=== PATIENT | male | born 1980 | race Caucasian/White ===

== ENCOUNTER 2018-10-16 16:41 | Emergency (ER) | payer MEDICARE, BC, SELFPAY ==
[2018-10-16 16:44] VITALS: BP 168/105; PULSE 102; RESP 16; TEMP 36.3; O2SAT 99
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
--- NOTE | 2018-10-16 16:59 | DI.RAD_ITS ---
SYMPTOM/DIAGNOSIS: COUGH PA AND LATERAL CHEST: There are no prior comparison exams. The cardiac and mediastinal contours have a normal appearance. The lungs are well inflated and clear. No infiltrate, effusion or pneumothorax is seen. No bony abnormalities are identified. IMPRESSION: Negative chest x-ray
--- NOTE | 2018-10-16 17:19 | DI.VRAD_ITS ---
EXAM: XR Chest, 2 Views EXAM DATE/TIME: 10/16/2018 4:59 PM CLINICAL HISTORY: 38 years old, male; Signs and symptoms; Cough TECHNIQUE: Imaging protocol: XR of the chest, 2 views. COMPARISON: No relevant prior studies available. FINDINGS: Lungs: Unremarkable. No consolidation. Pleural space: The posterior costophrenic angles are incompletely visualized on the lateral film. Heart/Mediastinum: Unremarkable. No cardiomegaly. Bones/joints: Unremarkable. IMPRESSION: No acute cardiopulmonary disease. Posterior costophrenic angles incompletely visualized on the lateral film. Dictated and Authenticated by: Jacy Baptiste MD. Ordering:LATONYA Gomez MD
[2018-10-16 17:34] VITALS: BP 168/105; PULSE 98; RESP 16; O2SAT 99
== END 2018-10-16 17:37 | disposition home or self-care (01) ==
PROVIDERS: Emergency Provider Emergency Medicine
DX: J44.9 Chronic obstructive pulmonary disease, unspecified (principal); F17.210 Nicotine dependence, cigarettes, uncomplicated; Z53.29 Procedure and treatment not carried out because of patient's decision for other reasons
CPT/HCPCS: 99283; 71046

== ENCOUNTER 2019-03-20 14:36 | Outpatient (REF) | payer MEDICARE, BC, SELFPAY ==
[2019-03-20 22:09] LABS: Abs Immature Grans 0.01 k/cumm (0.0-0.09); Absolute Basophil Count 0.07 k/cumm (0.0-0.2); Absolute Eosinophil Count 0.13 k/cumm (0.0-0.7); Absolute Monocyte Count 0.53 k/cumm (0.11-0.7); Absolute Neutrophil Count 3.54 k/cumm (1.2-6.7); Basophils % 1.1; Immature Grans % 0.2; Mean Corp. HGB Concentration 35.6 g/dL (32.0-36.0); Mean Corpuscular Hemoglobin 32.3 pg (27.0-33.0); Mean Corpuscular Volume 90.9 fL (80-95); Mean Platelet Volume 10.6 fL (8.0-11.0); Monocytes % 8.2; Neutrophils % 54.5; Platelet Count 263 x1000/uL (130-400); RBC 4.95 m/cumm (4.50-6.00); RBC Distribution Width 12.8 % (11.8-14.1); White Blood Cell Count 6.48 k/cumm (4.4-10.8)
[2019-03-20 22:23] LABS: ALT 29 U/L (16-63); AST 22 U/L (15-37); Albumin 3.9 g/dL (3.4-5.0); Alkaline Phosphatase 84 U/L (46-116); Anion Gap 9.7 mmol/L (3-11); BUN 8 mg/dL (7-18); Bilirubin, Total 0.3 mg/dL (0.2-1.0); CO2 27.3 mmol/L (21.0-32.0); CREATININE 0.98 mg/dL (0.70-1.30); Calcium 8.9 mg/dL (8.5-10.1); Chloride 102 mmol/L (98-107); Glucose 171 mg/dL (74-106); Potassium 3.9 mmol/L (3.5-5.1); Sodium 139 mmol/L (136-145); TSH (W/Ref FT4) 0.86 uIU/mL (0.36-3.74); Total Protein 7.2 g/dL (6.4-8.2)
[2019-03-22 11:41] LABS: Alpha 1 Antitrypsin,Serum 152 mg/dL (90-200)
== END 2019-03-20 14:56 ==
LOC: NCHCN 14:36
PROVIDERS: PCP Specialist/Technologist Athletic Trainer; Visit Provider Specialist/Technologist Athletic Trainer
DX: E03.9 Hypothyroidism, unspecified (principal); K92.2 Gastrointestinal hemorrhage, unspecified; J44.9 Chronic obstructive pulmonary disease, unspecified
CPT/HCPCS: 80053; 82103; 84443; 85025

== ENCOUNTER 2019-03-27 15:36 | Outpatient (REF) | payer MEDICARE, BC, SELFPAY ==
[2019-03-27 21:14] LABS: Hemoglobin A1C 5.1 % (4.5-6.2)
== END 2019-03-27 15:56 ==
LOC: NCHCN 15:36
PROVIDERS: PCP Specialist/Technologist Athletic Trainer; Visit Provider Specialist/Technologist Athletic Trainer
DX: R73.9 Hyperglycemia, unspecified (principal)
CPT/HCPCS: 83036

== ENCOUNTER 2019-04-10 02:02 | Outpatient (CLI) | payer MEDICARE, BC, SELFPAY ==
--- NOTE | 2019-04-10 08:00 | PFT_ITS ---
DATE: APRIL 10, 2019 REQUESTING PROVIDER: LOLA Schreiber INTERPRETATION SPIROMETRY: Spirometry shows mild obstructive airways disease with significant bronchodilator response. LUNG VOLUMES: Lung volumes show no evidence of restriction. There is mild hyperinflation and air trapping. DIFFUSION CAPACITY: Normal. AIRWAY RESISTANCE: Normal. IMPRESSION: Mild obstructive airways disease with significant bronchodilator response. This is associated with mild hyperinflation and air trapping. Clinical correlation recommended.
[2019-04-10] MEDS: Inhaler, Assist Device 1 EACH MC (14:33)
[2019-04-10] MEDS: Albuterol HFA 18 GM 200 PUFF INH IH (14:34)
== END 2019-04-10 02:22 ==
PROVIDERS: PCP Specialist/Technologist Athletic Trainer; Visit Provider Specialist/Technologist Athletic Trainer
DX: J44.9 Chronic obstructive pulmonary disease, unspecified (principal); R06.09 Other forms of dyspnea; R05 Cough; F17.210 Nicotine dependence, cigarettes, uncomplicated; Z57.39 Occupational exposure to other air contaminants
CPT/HCPCS: 94060; 94150; 94726; 94729

== ENCOUNTER → 2019-06-20 12:35 | Outpatient (BNVA) | payer MEDICARE, BC, SELFPAY | PROVIDERS: PCP Specialist/Technologist Athletic Trainer; Referring Provider Specialist/Technologist Athletic Trainer; Visit Provider Surgery | DX: K62.5 Hemorrhage of anus and rectum (principal); R63.6 Underweight; J44.9 Chronic obstructive pulmonary disease, unspecified; F17.210 Nicotine dependence, cigarettes, uncomplicated; Z77.098 Contact with and (suspected) exposure to other hazardous, chiefly nonmedicinal, chemicals; Y36.90XS War operations, unspecified, sequela; F43.10 Post-traumatic stress disorder, unspecified; Z13.88 Encounter for screening for disorder due to exposure to contaminants; M25.50 Pain in unspecified joint; G89.29 Other chronic pain; K60.1 Chronic anal fissure | CPT/HCPCS: 46600; 99204; 99215 ==

== ENCOUNTER 2019-07-10 01:02 | Outpatient (CLI) | payer MEDICARE, BC, SELFPAY ==
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
== END 2019-07-10 01:22 ==
PROVIDERS: PCP Specialist/Technologist Athletic Trainer; Visit Provider Internal Medicine
DX: J44.9 Chronic obstructive pulmonary disease, unspecified (principal)
CPT/HCPCS: 71250

== ENCOUNTER 2021-04-27 11:59 | Outpatient (REF) | payer MEDICARE, BC, SELFPAY ==
[2021-04-27 15:47] LABS: Iron 147 ug/dL (65-175); Total Iron Binding Capacity 237 ug/dL (250-450); Transferrin Sat 62 % (20-55)
[2021-04-27 15:55] LABS: ALT 20 U/L (16-63); AST 24 U/L (15-37); Alkaline Phosphatase 70 U/L (46-116); Anion Gap 8.9 mmol/L (3-11); BUN 9 mg/dL (7-18); Bilirubin, Total 0.4 mg/dL (0.2-1.0); CO2 27.1 mmol/L (21.0-32.0); CREATININE 0.7 mg/dL (0.70-1.30); Calcium 9.1 mg/dL (8.5-10.1); Chloride 103 mmol/L (98-107); Ferritin 140 ng/mL (26-388); Folate 17.7 ng/mL (8.6-20.0); Glucose 84 mg/dL (74-106); Potassium 4.8 mmol/L (3.5-5.1); Sodium 139 mmol/L (136-145); TSH (W/Ref FT4) 1.24 uIU/mL (0.36-3.74); Total Protein 7.4 g/dL (6.4-8.2); Vitamin B12 514 pg/mL (193-986)
== END 2021-04-27 12:00 | disposition home or self-care (01) ==
LOC: NCHCN 11:59
PROVIDERS: PCP Specialist/Technologist Athletic Trainer; Visit Provider Nurse Practitioner Family
DX: K30 Functional dyspepsia (principal); E03.9 Hypothyroidism, unspecified; R03.0 Elevated blood-pressure reading, without diagnosis of hypertension; M54.9 Dorsalgia, unspecified; R41.3 Other amnesia
CPT/HCPCS: 80053; 82607; 82728; 82746; 83540; 83550; 84443

== ENCOUNTER 2021-05-17 11:32 | Emergency (ER) | payer MEDICARE, BC, SELFPAY ==
[2021-05-17 11:42] VITALS: BP 172/100; PULSE 94; RESP 14; TEMP 37.2; O2SAT 98
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
== END 2021-05-17 13:02 | disposition home or self-care (01) ==
PROVIDERS: Emergency Provider Physician Assistant; PCP Specialist/Technologist Athletic Trainer
DX: T20.212A Burn of second degree of left ear [any part, except ear drum], initial encounter (principal); X02.8XXA Other exposure to controlled fire in building or structure, initial encounter
CPT/HCPCS: 99282; 99283

== ENCOUNTER 2021-09-03 14:18 | Emergency (ER) | payer MEDICARE, BC, SELFPAY ==
[2021-09-03 14:44] VITALS: BP 142/91; PULSE 102; RESP 16; TEMP 36.5; O2SAT 96
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
--- NOTE | 2021-09-03 15:30 | DI.RAD_ITS ---
Exam(s) XR CHEST 2V PA LATERAL EXAM: XR CHEST 2V PA LATERAL CLINICAL HISTORY: fall pain rt sided TECHNIQUE: 2D digital imaging was performed. COMPARISON: CR XR CHEST 2V PA LATERAL from 10/16/2018 FINDINGS: The heart is not enlarged. The lungs are clear and well expanded. No pleural effusion seen. Mediastin al contours appear intact. IMPRESSION: Normal chest. RADIATION DOSE DELIVERED: Total DLP
== END 2021-09-03 16:15 | disposition home or self-care (01) ==
PROVIDERS: Emergency Provider Emergency Medicine; PCP Nurse Practitioner Family
DX: S20.211A Contusion of right front wall of thorax, initial encounter (principal); W01.190A Fall on same level from slipping, tripping and stumbling with subsequent striking against furniture, initial encounter
CPT/HCPCS: 99283; 71046

== ENCOUNTER 2023-05-13 09:34 | Emergency (ER) | payer MEDICARE, BC, SELFPAY ==
[2023-05-13 09:40] VITALS: BP 166/90; PULSE 112; RESP 18; TEMP 37.4; O2SAT 95
--- NOTE | 2023-05-13 10:00 | DI.RAD_ITS ---
Exam(s) XR HAND LT COMPLETE EXAM: XR HAND LT COMPLETE CLINICAL HISTORY: fall/pain/5th digit. TECHNIQUE: 2D digital imaging was performed of the left hand. Three views were obtained. AP, later al and oblique views were obtained. COMPARISON: No exams were available for comparison FINDINGS: BONES: There is an acute nondisplaced fracture through the midshaft of the 5th metacarpal bone. No b janis destructive lesion is seen. JOINTS: No dislocation present. SOFT TISSUE: Normal. IMPRESSION: Acute nondisplaced 5th metacarpal fracture. DATA REPOSITORY: RADIATION DOSE DELIVERED:
--- NOTE | 2023-05-13 10:00 | ED.GENADUL_ITS ---
HPI General Stated Complaint: Orthopedic Mode of arrival: ambulatory. HEBERT: 4 Date/Time Provider Initiated Documentation: 05/13/23 10:00. Limitations to Documentation: no limitations. Information obtained by: patient. History of Present Illness L hand injury moderate 5 aching left and upper extremity reports no radiation day(s) (2) constant Immobilization improves symptom(s), Movement worsens symptoms no other symptoms. none Related Data Home Medications Medication Instructions Recorded Confirmed Unknown [No Known Home Meds] 05/17/21 05/13/23 Allergies Allergy/AdvReac Type Severity Reaction Status Date / Time bupropion Allergy Severe Verified 05/13/23 09:45 lorazepam [From Ativan] Allergy Severe Verified 05/13/23 09:45 Benzodiazepines AdvReac Mild ? MH Unverified 05/13/23 09:45 reaction Review of Systems Constitutional Constitutional: Denies weakness Musculoskeletal Musculoskeletal: Denies deformity, Denies numbness, Reports stiffness and Denies tingling Integumentary/Breasts Skin/Breast: Denies rash Neurologic Neurologic: Denies numbness, Denies tingling and Denies weakness PFSH All Active Problems (Updated 05/13/23 @ 11:15 by LOLA Weiss) Fracture of fifth metacarpal bone of left hand (Acute) Chronic rectal fissure (Acute) Chronic joint pain (Acute) Myalgia and myositis, unspecified (Acute) [place] syndrome (Acute) Exposure to hazardous chemical (Acute) Hypothyroidism (Chronic) GI bleed (Chronic) Low weight (Acute) Abdominal pain (Acute) PTSD (post-traumatic stress disorder) (Acute) Diarrhea (Acute) Asthma (Chronic) Alcohol abuse (Chronic) COPD (chronic obstructive pulmonary disease) (Chronic) Medical History Lymphadenopathy Murmur Multiple nodules of lung Depression FRANCO (obstructive sleep apnea) URI (upper respiratory infection) (~05/2019) Bright red blood per rectum Auditory hallucinations Marijuana use Schizoaffective disorder Social History Smoking/Tobacco Use Status: Current every day Tobacco Type: cigarettes Smoking risk assessment performed?: Yes Alcohol Intake: current Alcohol Intake frequency: 0-2 drinks per day Alcohol type: beer Drug use: Occasionally Substance use type: marijuana Do you feel safe at home: Yes Do you feel safe in your relationship?: Yes Additional Social history: family members stalking him for ex- CATARINA Have you Been Recently Intoxicated or Drunk Within the Last 30 days?: Yes Have you Ever Experienced Previous Episodes of Alcohol Withdrawal?: Yes Have you ever Experienced Withdrawal Seizures?: No Have you ever Experienced Delirium Tremens(DT)s?: Yes Have you ever undergone Alcohol Rehabilitation Treatment (i.e, inpt ot outpatient treatment programs)?: Yes Have you ever Experienced Blackouts?: Yes Have you ever Combined Alcohol with other Downers within the last 90 days?: No Have you ever Combined Alcohol with any other Substance of Abuse during the last 90 days?: No Positive Blood Alcohol level on Presentation? [PCS.BAL]: No Evidence of Increased Autonomic Activity (i.e. HR>120, tremor, sweating, agitation, nausea)?: No Result: 5 Exam Const General: cooperative, healthy appearing and comfortable Orientation: alert and awake HENAK Head: normal to inspection, normocephalic and atraumatic Eyes Conjunctivae: conjunctivae normal Neck Neck: normal visual inspection, trachea midline and supple Resp Effort & Inspection: normal respiratory effort and able to speak in complete sentences Cardio Rate: regular rate (90s) Rhythm: regular rhythm Skin Other: intact Neuro General: patient alert, patient awake, moves all extremities and no focal motor deficits Sensory Exam: no sensory deficits noted Extrem General: capillary refill normal Other: Left hand exam: Visual inspection without erythema, ecchymosis, obvious deformity. There is mild swelling about the fifth metacarpal as well as point tenderness. Patient is able to demonstrate full extension of all digits, able to fully flex his thumb index, middle, ring finger, only able to half flex his pinky finger but there is no obvious malrotation. Wrist is nontender and demonstrates full range of motion. Normal radial pulse and capillary refill Psych Appearance: grossly normal Mental Status: mental status grossly normal Course Vital Signs Vital signs: Vital Signs Temperature 37.4 C 05/13/23 09:40 Pulse 112 H 05/13/23 09:40 Respiratory Rate 18 05/13/23 09:40 Blood Pressure 166/90 H 05/13/23 09:40 Pulse Oximetry 95 05/13/23 09:40 Temperature 37.4 C 05/13/23 09:40 Temperature Source Temporal Artery Scan 05/13/23 09:40 Pulse 112 H 05/13/23 09:40 Respiratory Rate 18 05/13/23 09:40 Respiratory Effort Normal, Non-Labored 05/13/23 09:46 Blood Pressure 166/90 H 05/13/23 09:40 Blood Pressure Position Sitting 05/13/23 09:40 Pulse Oximetry 95 05/13/23 09:40 Oxygen Delivery Method Room Air 05/13/23 09:40 Oxygen Flow Rate 0 05/13/23 09:40 Pain Level 3 05/13/23 09:54 Medical Decision Making 43-year-old gentleman who reports that he is ambidextrous, primarily uses his right hand, states that he fell mechanically 2 days ago injuring his left hand. Denies any other injury. Does report history of right sided boxer's fracture. Clinically he appears well, nontoxic. No orthopedic deformity. Plan to obtain x-ray and reassess. Left hand x-ray ordered and reviewed, read by me for by radiology as a acute nondisplaced fifth metacarpal fracture. Ortho-Glass ulnar gutter splint applied. Patient tolerated well. Neuro, vascular, tendon intact status post splint application as examined by me. Discussed the importance of elevation, cool compresses, [id number] Tylenol and or Motrin as directed for discomfort. Referral sent to orthopedics for follow-up in 1 week. Standard discharge and return precautions were provided. Patient understands, is agreeable to this plan, and has no additional questions or concerns upon discharge. This documentation was generated using [employer] dictation system, please disregard any oddities of phrase or misspellings. Medical Records Medical records reviewed: Yes I reviewed the patient's medical records. Quality:[facility] Health Related Social Needs: No Data to Display Discharge Plan Disposition Patient Disposition: Home Discharge Details Chief Complaint: Orthopedic Clinical Impression: Fracture of fifth metacarpal bone of left hand Primary Care Provider: Merissa Cano ED Provider: Orlin Dukes Home Meds and New Rx's Prescriptions: No Action No Known Home Meds Discharge Instructions Instructions: Hand Fracture (ED) Additional Instructions: Last, elevate, cool compresses every 2 hours for 20 minutes. [id number] Tylenol and/or Motrin as directed for discomfort. Wear splint until reevaluated with orthopedics in approximately 1 week, referral sent. If you do not hear from them in the next few of days, please contact their office. Please watch for new or evolving symptoms and return to the ER for any concerns. Referrals: Federico Biggs MD [ [facility] STAFF PHYSICIAN] -
== END 2023-05-13 11:29 | disposition home or self-care (01) ==
PROVIDERS: Emergency Provider Physician Assistant; PCP Nurse Practitioner Family
DX: S62.357A Nondisplaced fracture of shaft of fifth metacarpal bone, left hand, initial encounter for closed fracture (principal); F17.210 Nicotine dependence, cigarettes, uncomplicated; W18.39XA Other fall on same level, initial encounter; Y92.018 Other place in single-family (private) house as the place of occurrence of the external cause
CPT/HCPCS: 29125; 99283; 73130

== ENCOUNTER 2023-05-25 15:14 | Outpatient (CLI) | payer MEDICARE, BC, SELFPAY ==
--- NOTE | 2023-05-25 13:00 | DI.RAD_ITS ---
Exam(s) XR HAND LT COMPLETE EXAM: XR HAND LT COMPLETE CLINICAL HISTORY: F/U FRACTURE. TECHNIQUE: 2D digital imaging was performed. Three views. COMPARISON: CR XR HAND LT COMPLETE from 05/13/2023 FINDINGS: BONES: There has been no change in the alignment of the 5th metacarpal fracture. No bony destructive lesion is seen. JOINTS: No dislocation present. SOFT TISSUE: Normal. IMPRESSION: stable alignment of 5th metacarpal fracture. DATA REPOSITORY: RADIATION DOSE DELIVERED:
== END 2023-05-25 15:15 | disposition home or self-care (01) ==
LOC: DIORS 15:14
PROVIDERS: PCP Nurse Practitioner Family; Referring Provider Nurse Practitioner Family; Visit Provider Student in an Organized Health Care Education/Training Program
DX: S62.307A Unspecified fracture of fifth metacarpal bone, left hand, initial encounter for closed fracture (principal); X58.XXXA Exposure to other specified factors, initial encounter
CPT/HCPCS: 99213; 73130

== ENCOUNTER 2023-06-15 15:37 | Outpatient (CLI) | payer MEDICARE, BC, SELFPAY ==
--- NOTE | 2023-06-15 13:11 | DI.RAD_ITS ---
Exam(s) XR HAND LT LIMITED EXAM: XR HAND LT LIMITED CLINICAL HISTORY: F/U FRACTURE. TECHNIQUE: 2D digital imaging was performed of the left hand. Two views were obtained. PA and late ral views were obtained. COMPARISON: CR XR HAND LT COMPLETE from 05/13/2023 CR XR HAND LT COMPLETE from 05/25/2023 FINDINGS: BONES: There is no change in alignment of the nondisplaced fracture involving the 5th metacarpal bone . The fracture line is still visualized. No new fracture is seen. No bony destructive lesion is se en. JOINTS: No dislocation present. SOFT TISSUE: Normal. IMPRESSION: Stable nondisplaced 5th metacarpal fracture. DATA REPOSITORY: RADIATION DOSE DELIVERED:
== END 2023-06-15 15:38 | disposition home or self-care (01) ==
LOC: DIORS 15:37
PROVIDERS: PCP Nurse Practitioner Family; Referring Provider Nurse Practitioner Family; Visit Provider Student in an Organized Health Care Education/Training Program
DX: S62.307D Unspecified fracture of fifth metacarpal bone, left hand, subsequent encounter for fracture with routine healing (principal); X58.XXXD Exposure to other specified factors, subsequent encounter
CPT/HCPCS: 99213; 73120

== ENCOUNTER 2023-06-20 18:35 | Outpatient (REF) | payer MEDICARE, BC, SELFPAY ==
[2023-06-20 21:10] LABS: Abs Immature Grans 0.02 10^3/uL (0.0-0.06); Absolute Basophil Count 0.12 10^3/uL (0.0-0.2); Absolute Eosinophil Count 0.11 10^3/uL (0.0-0.7); Absolute Monocyte Count 0.75 10^3/uL (0.1-0.8); Absolute Neutrophil Count 4.67 10^3/uL (1.2-6.7); Basophils % 1.5; Eosinophils % 1.4; HCT 48.2 % (40.0-50.0); HGB 17.1 g/dL (13.5-17.5); Immature Grans % 0.2; Lymphocytes % 29.7; MCHC 35.5 % (32.0-36.0); MCV 96 fL (80-95); MPV 10.1 fL (8.0-11.0); Monocytes % 9.3; Neutrophils % 57.9; Platelet Count 259 10^3/uL (130-400); RBC 5.03 10^6/uL (4.36-5.78); RDW 12.3 % (11.8-14.1); WBC 8.07 10^3/uL (4.4-10.8)
[2023-06-20 21:14] LABS: Bilirubin Negative (Negative); Blood Negative (Negative); Clarity Turbid (Clear); Glucose Negative (Negative); Ketones Negative (Negative); Leukocyte Esterase Negative (Negative); Nitrite Negative (Negative); Specific Gravity >= 1.030 (1.005-1.025); Urobilinogen 0.2 mg/dL (Up to 0.2); pH 5.5 (5-8)
[2023-06-20 21:41] LABS: ALT 60 U/L (16-63); AST 58 U/L (15-37); Albumin 3.9 g/dL (3.4-5.0); Alkaline Phosphatase 104 U/L (46-116); Anion Gap 12.1 mmol/L (3-11); BUN 18 mg/dL (7-18); Bilirubin, Total 0.6 mg/dL (0.2-1.0); CO2 25.9 mmol/L (21.0-32.0); CREATININE 0.8 mg/dL (0.70-1.30); Calcium 9.5 mg/dL (8.5-10.1); Calculated LDL 38 mg/dL (<100); Chloride 101 mmol/L (98-107); Cholesterol 146 mg/dL (<200); Estimated GFR 113.32 (mL/min/1.73m2); Folate 14.9 ng/mL (8.6-20.0); Glucose 72 mg/dL (74-106); HDL Cholesterol 73 mg/dL (40-60); Potassium 4.7 mmol/L (3.5-5.1); Sodium 139 mmol/L (136-145); TSH (W/Ref FT4) 3.58 uIU/mL (0.36-3.74); Total Protein 7.3 g/dL (6.4-8.2); Triglyceride 176 mg/dL (<150); Vitamin B12 981 pg/mL (193-986)
[2023-06-20 21:42] LABS: Microalb ug/mg Crea 12.6 ug/mg Cr
[2023-06-21 17:55] LABS: PSA, Screening 0.5 ng/mL (<=2.5)
[2023-06-21 18:37] LABS: HIV-1/2 Ag & Ab Screen Negative (Negative)
[2023-06-21 18:41] LABS: Hepatitis C Ab w Rflx HCV PCR Negative (Negative)
== END 2023-06-20 18:36 | disposition home or self-care (01) ==
LOC: NCHCN 18:35
PROVIDERS: PCP Nurse Practitioner Family; Visit Provider Nurse Practitioner Family
DX: Z13.6 Encounter for screening for cardiovascular disorders (principal); R41.3 Other amnesia; F25.9 Schizoaffective disorder, unspecified; Z80.42 Family history of malignant neoplasm of prostate
CPT/HCPCS: 80053; 80061; 84153; 86803; 87389; 81003; 82043; 82570; 82607; 82746; 84443; 85025

== ENCOUNTER 2023-06-30 05:34 | Outpatient (CLI) | payer MEDICARE, BC, SELFPAY ==
[2023-06-30] MEDS: Levalbuterol HFA 15 GM INH 4 PUFF IH (16:06)
[2023-06-30] MEDS: Inhaler, Assist Device 1 EACH MC (16:06)
--- NOTE | 2023-07-01 12:16 | W.PFT ---
Date of service: 06/30/23 Time of Service: 14:50 Pulmonary Function Test Result Indications: COPD Interpretation Spirometry: There is moderate airflow limitation. There is a significant bronchodilator response. Lung Volumes: There is hyperinflation and air trapping. Diffusion Capacity: Normal diffusion Airway Pressure: Increased airways resistance Impression There is moderate airflow obstruction with a bronchodilator response and air trapping. This could be consistent aith asthma-COPD overlap syndrome. Clinical Correlation therefore is recommended.
== END 2023-06-30 05:35 | disposition home or self-care (01) ==
LOC: RT 05:34
PROVIDERS: PCP Nurse Practitioner Family; Visit Provider Nurse Practitioner Family
DX: J44.9 Chronic obstructive pulmonary disease, unspecified (principal)
CPT/HCPCS: 94060; 94726; 94729

== ENCOUNTER → 2023-07-06 11:34 | Outpatient (BNVA) | payer MEDICARE, BC, SELFPAY | PROVIDERS: PCP Nurse Practitioner Family; Referring Provider Nurse Practitioner Family; Visit Provider Physician Assistant Surgical | DX: J44.89 Other specified chronic obstructive pulmonary disease (principal); R06.2 Wheezing; F17.210 Nicotine dependence, cigarettes, uncomplicated | CPT/HCPCS: 99215 ==

== ENCOUNTER → 2023-08-29 14:47 | Outpatient (BNVA) | payer MEDICARE, BC, SELFPAY | PROVIDERS: PCP Nurse Practitioner Family; Referring Provider Nurse Practitioner Family; Visit Provider Surgery ==

== ENCOUNTER 2023-08-29 18:13 | Outpatient (CLI) | payer MEDICARE, BC, SELFPAY ==
[2023-08-29 16:35] LABS: Abs Immature Grans 0.05 10^3/uL (0.0-0.06); Absolute Eosinophil Count 0.04 10^3/uL (0.0-0.7); Absolute Lymphocyte Count 2.43 10^3/uL (1.2-3.4); Absolute Neutrophil Count 4.92 10^3/uL (1.2-6.7); Basophils % 1.2; Eosinophils % 0.5; HCT 34.7 % (40.0-50.0); HGB 12.3 g/dL (13.5-17.5); Immature Grans % 0.6; Lymphocytes % 29.5; MCH 33.8 pg (27.0-33.0); MCHC 35.4 % (32.0-36.0); MCV 95 fL (80-95); MPV 9.6 fL (8.0-11.0); Monocytes % 8.5; Neutrophils % 59.7; Platelet Count 223 10^3/uL (130-400); RBC 3.64 10^6/uL (4.36-5.78); RDW 13.6 % (11.8-14.1); RDW-SD 47.6 fL; WBC 8.24 10^3/uL (4.4-10.8)
[2023-08-29 18:00] LABS: ALT 93 U/L (16-63); AST 70 U/L (15-37); Albumin 2.9 g/dL (3.4-5.0); Alkaline Phosphatase 148 U/L (46-116); Anion Gap 10.8 mmol/L (3-11); BUN 17 mg/dL (7-18); Bilirubin, Total 0.8 mg/dL (0.2-1.0); CO2 25.2 mmol/L (21.0-32.0); CREATININE 0.9 mg/dL (0.70-1.30); Calcium 8.2 mg/dL (8.5-10.1); Chloride 105 mmol/L (98-107); Estimated GFR 109.36 (mL/min/1.73m2); GGT 645 U/L (15-85); Glucose 86 mg/dL (74-106); Lipase 97 U/L (16-77); Magnesium 2.1 mg/dL (1.8-2.4); Potassium 4.3 mmol/L (3.5-5.1); Sodium 141 mmol/L (136-145); Total Protein 6.4 g/dL (6.4-8.2)
[2023-08-29 18:04] LABS: C-Reactive Protein < 0.50 mg/dL (<or=0.5)
[2023-08-29 18:05] LABS: Ferritin > 2000 ng/mL (26-388)
[2023-08-29 19:05] LABS: Folate 12.6 ng/mL (8.6-20.0); Vitamin B12 922 pg/mL (193-986)
== END 2023-08-29 18:14 | disposition home or self-care (01) ==
LOC: LBO 18:14
PROVIDERS: PCP Nurse Practitioner Family; Visit Provider Surgery
DX: F43.10 Post-traumatic stress disorder, unspecified (principal); F10.10 Alcohol abuse, uncomplicated; I10 Essential (primary) hypertension; E03.9 Hypothyroidism, unspecified; R63.6 Underweight; R11.2 Nausea with vomiting, unspecified; R19.7 Diarrhea, unspecified; K62.5 Hemorrhage of anus and rectum; J44.9 Chronic obstructive pulmonary disease, unspecified; R59.1 Generalized enlarged lymph nodes; F17.210 Nicotine dependence, cigarettes, uncomplicated; Z77.098 Contact with and (suspected) exposure to other hazardous, chiefly nonmedicinal, chemicals; R91.8 Other nonspecific abnormal finding of lung field; K21.9 Gastro-esophageal reflux disease without esophagitis
CPT/HCPCS: 36415; 80053; 83690; 99215; 82607; 82728; 82746; 82977; 83735; 85025; 86140

== ENCOUNTER → 2023-09-22 02:31 | Outpatient (CLI) | payer MEDICARE, BC, SELFPAY ==
--- NOTE | 2023-09-22 08:51 | DI.CT_ITS ---
Exam(s) CT CHEST/ABD/PEL W EXAM: CT CHEST/ABD/PEL W CLINICAL HISTORY: cirrhosis, f/u pulm nodule, smoker K70.30 CIRRHOSIS F17.200 SMOKER R11.2. TECHNIQUE: Imaging Protocol: Axial computed tomography images with coronal and sagittal reformatted images were created and reviewed CONTRAST MATERIAL: Intravenous: Omnipaque 350 Contrast volume:100 ml Oral: Yes. Oral contrast was also administered for bowel opacification. COMPARISON: CT CT CHEST WO from 07/10/2019 CR XR CHEST 2V PA LATERAL from 09/03/2021 FINDINGS: CHEST: LUNGS: There is an unchanged solitary small 2 millimeter granuloma in the left upper lobe, unchanged from July 2019. There are no new lung nodules, infiltrates, nor pleural effusions. There are no si gnificant findings in the trachea and mainstem bronchi.. MEDIASTINUM: There is no hilar nor mediastinal adenopathy. Visualized thyroid unremarkable. CARDIAC: Heart size is normal. There is no pericardial effusion.Caliber of the thoracic aorta is wit hin normal limits. OSSEOUS: No significant osseous lesions.. ABDOMEN: There is abnormal thickening of the mid-distal duodenum and proximal small bowel jejunal loops. No h igh-grade obstruction. Oral contrast has progressed to the level the colon-rectum. LIVER: There are no focal hepatic lesions nor dilatation of intrahepatic ducts. GALLBLADDER/BILIARY: No obvious gallbladder pathology. CBD is not dilated. PANCREAS: No evidence of pancreatic mass nor dilatation of the pancreatic duct. SPLEEN: Spleen is not enlarged. There are no intrasplenic lesions. Splenic and portal veins are larson nt. ADRENALS: There are no significant adrenal masses. KIDNEYS: No calculi nor hydronephrosis. No solid renal masses. No cysts. Retroaortic left renal vein noted. ABDOMINAL AORTA: Abdominal aorta is not enlarged. LYMPH NODES: There is no retroperitoneal nor paraaortic adenopathy. ABDOMINAL WALL: No evidence of significant anterior abdominal wall nor inguinal hernia. GI: Slight prominence of the ileocecal valve noted which may just be fatty change. PELVIS: LYMPH NODES: There is no intrapelvic nor inguinal adenopathy. GI: No evidence of appendicitis.No evidence of sigmoid diverticulitis. URINARY BLADDER: No calculi nor masses evident REPRODUCTIVE: Prostate gland is enlarged, measuring 5.5 cm wide. And seminal vesicles unremarkable. OSSEOUS: No significant osseous lesions. IMPRESSION: 1. No significant intrathoracic findings. 2. In the abdomen the main finding is abnormal circumferential thickening of the distal half the duod enum and proximal small bowel jejunal loops distal to the ligament of Treitz. Endoscopy is recommend ed or alternatively, upper GI series and small-bowel follow-through with special attention to the duo denum and proximal small bowel loops.. 3. Other findings as above. RADIATION DOSE DELIVERED: 760.52mGy.cm Total DLP DATA REPOSITORY: All CT scans at this facility are submitted to the National Radiology Data Registry (NRDR) Dose Index Registry (DIR) with the [employer] (A[employer]). RADIATION OPTIMIZATION: All CT scans at this facility use at least one of these dose optimization te chniques: automated exposure control; mA and/or kV adjustment per patient size (includes targeted exa ms where dose is matched to clinical indication); or iterative reconstruction.
[2023-09-22] MEDS: Barium Sulfate 2% W/V-Berry Smoothie 450 ML BTL PO ×2 (12:23→12:24)
[2023-09-22] MEDS: Normal Saline - Diluent 50 ML VIAL IJ (14:33)
[2023-09-22] MEDS: Omnipaque 350 MG/ML 500 ML BTL-Imaging package IJ (14:34)
== END ==
PROVIDERS: PCP Nurse Practitioner Family; Visit Provider Surgery
DX: K70.30 Alcoholic cirrhosis of liver without ascites (principal); F17.210 Nicotine dependence, cigarettes, uncomplicated; J44.9 Chronic obstructive pulmonary disease, unspecified
CPT/HCPCS: 74177; 71260

== ENCOUNTER → 2023-10-06 14:44 | Outpatient (BNVA) | payer MEDICARE, BC, SELFPAY | PROVIDERS: PCP Nurse Practitioner Family; Referring Provider Nurse Practitioner Family; Visit Provider Student in an Organized Health Care Education/Training Program | DX: J44.89 Other specified chronic obstructive pulmonary disease (principal); F17.200 Nicotine dependence, unspecified, uncomplicated | CPT/HCPCS: 99214 ==

== ENCOUNTER → 2024-01-19 14:25 | Outpatient (BNVA) | payer MEDICARE, BC, SELFPAY | PROVIDERS: PCP Nurse Practitioner Family; Referring Provider Nurse Practitioner Family; Visit Provider Physician Assistant Surgical | DX: J44.89 Other specified chronic obstructive pulmonary disease (principal); F17.200 Nicotine dependence, unspecified, uncomplicated | CPT/HCPCS: 99214 ==

== ENCOUNTER 2025-02-15 16:25 | Outpatient (REF) | payer MEDICARE, BC, SELFPAY ==
[2025-02-15 21:05] LABS: Glucose Negative (Negative)
[2025-02-15 21:36] LABS: COMMENT (LAB VIEW ONLY) 164.49 mg/dL; Microalb ug/mg Crea 2.7 ug/mg Cr
== END 2025-02-15 16:26 | disposition home or self-care (01) ==
LOC: NCHCN 16:25
PROVIDERS: PCP Nurse Practitioner Family; Visit Provider Nurse Practitioner Family
DX: I10 Essential (primary) hypertension (principal)
CPT/HCPCS: 81003; 82043; 82570